=== PATIENT | female | born 1990 | race Caucasian/White ===

== ENCOUNTER 2017-01-30 11:00 | Outpatient (CLI) | payer OTHER ==
[~2017-01-30] VITALS: Ht 157.5 cm; Wt 81.8 kg
--- NOTE | 2017-01-30 11:15 | TRIAGE ---
OB Triage Datetime Report Generated by CPN: 01/30/2017 11:15 Datetime: 01/30/2017 10:50 Time of Arrival: 01/30/2017 10:50 Arrived By: Ambulatory Arrived From: Dr. Baer Chief Complaint: PT CAME IN FROM CLINIC FOR NST AND BPP FOR ARRYTHMIA Movement: Present Contractions: Denies/Absent Rupture of Membranes: Denies Vaginal Discharge: Denies Recent Sexual Intercouse: Denies Additional Patient Complaints: NONE Time Provider Notified: 01/30/2017 11:11 Provider Notified: MAURIZIO LINDQUIST Initial Plan: NST AND BPP
[2017-01-30] MEDS ORDERED: LACTATED RINGER'S 1,000 ML IV SCH (11:29)
[2017-01-30 11:34] VITALS: BP 122/74; PULSE 106; RESP 19
[2017-01-30 11:35] VITALS: Ht 157.5 cm; Wt 81.8 kg
[2017-01-30] MEDS ORDERED: PREN1TAB79 PO (11:36)
--- NOTE | 2017-01-30 13:31 | RADRPT ---
AMENDMENT: 01/30/2017 4:16:52 PM Graham Hammond M.d There is no evidence of hydrops in the limited images of the fetus. PROCEDURE: US OB. CLINICAL INDICATION: Size and dates , arrhythmia TECHNIQUE: Multiple sonographic images of the pelvis and gravid uterus were obtained. The images were reviewed on a PACS workstation. COMPARISON: No prior studies are available for comparison. FINDINGS: There is a single viable intrauterine gestation. Cardiac activity is present with 137 beats per min guillermina. There is a vertex presentation. The placenta is anterior. There is no evidence for an abruption or placenta previa. Measurements were made in order to determine age. The results are as follows: BPD =8.1 cm HC =29.0 cm AC =32.2 cm FL =7.0 cm Estimated gestational age of approximately 34 weeks and 1 day based on ultrasound measurements. Clinical age: 34 weeks and 1 day. The estimated date of delivery is 03/12/17, based on ultrasound measurements. The EFW = 2607 g, 74%, based on LMP age. RPTAT: AA IMPRESSION: Single viable intrauterine gestation of approximately 34 weeks and 1 day based on ultrasound measur ements. .Graham Hammond MD, Date Time Electronically viewed and signed by .Graham Hammond MD, MD on 01/30/2017 16:16 .S/
--- NOTE | 2017-01-30 13:49 | RADRPT ---
PROCEDURE: US OB biophysical profile. CLINICAL INDICATION: decreased movements TECHNIQUE: Multiple sonographic images of the pelvis were obtained. The images were reviewed on a PACS workstation. COMPARISON: Same day FINDINGS: There is a single viable intrauterine gestation. Cardiac activity is present with 137 beats per lorenzo te. There is a vertex presentation. The placenta is anterior. There is no evidence for an abruption or placenta previa. There is a normal amount of amniotic fluid with an FRANTZ = 8.3 cm. Biophysical profile: movement 2/2 tone 2/2. breathing 2/2 FRANTZ 2/2 Total 10/16 RPTAT: AA . IMPRESSION: Normal biophysical profile. . .Graham Hammond MD, MD Date Time Electronically viewed and signed by .Graham Hammond MD, on 01/30/2017 13:48 .S/
--- NOTE | 2017-01-30 13:51 | RADRPT ---
PROCEDURE: Limited Doppler obstetric ultrasound CLINICAL INDICATION: distress TECHNIQUE: Multiple transverse and longitudinal grayscale images of the pelvis were obtained trans abdominally. Doppler interrogation of the cord was obtained. COMPARISON: same day FINDINGS: There is a single viable intrauterine gestation. Cardiac activity is present with 137 beats per lorenzo te. There is a vertex presentation. The placenta is anterior. There is no evidence for an abruption or placenta previa. The cord systolic to diastolic ratio ranges from 1.8 to 2.3. This is within normal limits for a 34 weeks gestation. RPTAT: AA IMPRESSION: Normal systolic to diastolic ratio of the cord. .Graham Hammond MD, MD Date Time Electronically viewed and signed by .Graham Hammond MD, on 01/30/2017 13:50 .S/
[2017-01-30] MEDS ORDERED: BETAMET NA PHOS/AC(6 MG/ML) 5ML INJ IM ONE (16:30)
--- NOTE | 2017-01-30 16:34 | PN ---
Triage Information Date/Time Jan 30, 2017 at 11:11 Reason for visit: Was sent from clinic due to arrhythmia noted during Doppler examination of heart tone Weeks of Gestation 26-year-old with IUP at 34 weeks and 1 day was sent from clinic after noted to have arrhythmia during Doppler examination in the office. Patient had no complications during current . She denies any complaint. Denies any leaking of fluid, vaginal bleeding or decreased movement. /Para 3 para 1 Diabetes: none Hypertention: none Additional information During auscultation in the triage did not see clear arrhythmia , however patient was admitted for prolonged observation and maternal medicine consultation Abdomen: Soft, gravid, fundal height consistent with gestational age No abdominal or uterine tenderness noted Objective Vital Signs Date Time Temp Pulse Resp B/P Pulse Ox O2 Delivery O2 Flow Rate FiO2 01/30/17 11:34 98.6 106 19 122/74 99 Room Air Heart Rate: 130's Heart Rate Comments During auscultation in triage, I did not note clear arrhythmia however patient was admitted for prolonged observation and MFM consultation Exam General appearance: Alert and oriented 4. Patient does not appear to be in any acute distress Fundal height consistent with gestational age. No abdominal or uterine tenderness noted No contraction on the monitor noted\ AMENDMENT: 01/30/2017 4:16:52 PM Graham Hammond M.d There is no evidence of hydrops in the limited images of the fetus. PROCEDURE: US OB. CLINICAL INDICATION: Size and dates , arrhythmia TECHNIQUE: Multiple sonographic images of the pelvis and gravid uterus were obtained. The images were reviewed on a PACS workstation. COMPARISON: No prior studies are available for comparison. FINDINGS: There is a single viable intrauterine gestation. Cardiac activity is present with 137 beats per minute. There is a vertex presentation. The placenta is anterior. There is no evidence for an abruption or placenta previa. Measurements were made in order to determine age. The results are as follows: BPD = 8.1 cm HC = 29.0 cm AC = 32.2 cm FL = 7.0 cm Estimated gestational age of approximately 34 weeks and 1 day based on ultrasound measurements. Clinical age: 34 weeks and 1 day. The estimated date of delivery is 03/12/17, based on ultrasound measurements. The EFW = 2607 g, 74%, based on LMP age. RPTAT: AA IMPRESSION: Single viable intrauterine gestation of approximately 34 weeks and 1 day based on ultrasound measurements. PROCEDURE: US OB biophysical profile. CLINICAL INDICATION: decreased movements TECHNIQUE: Multiple sonographic images of the pelvis were obtained. The images were reviewed on a PACS workstation. COMPARISON: Same day FINDINGS: There is a single viable intrauterine gestation. Cardiac activity is present with 137 beats per minute. There is a vertex presentation. The placenta is anterior. There is no evidence for an abruption or placenta previa. There is a normal amount of amniotic fluid with an FRANTZ = 8.3 cm. Biophysical profile: movement 2/2 tone 2/2. breathing 2/2 FRANTZ 2/2 Total 10/16 RPTAT: AA . IMPRESSION: Normal biophysical profile. PROCEDURE: Limited Doppler obstetric ultrasound CLINICAL INDICATION: distress TECHNIQUE: Multiple transverse and longitudinal grayscale images of the pelvis were obtained transabdominally. Doppler interrogation of the cord was obtained. COMPARISON: same day FINDINGS: There is a single viable intrauterine gestation. Cardiac activity is present with 137 beats per minute. There is a vertex presentation. The placenta is anterior. There is no evidence for an abruption or placenta previa. The cord systolic to diastolic ratio ranges from 1.8 to 2.3. This is within normal limits for a 34 weeks gestation. RPTAT: AA IMPRESSION: Normal systolic to diastolic ratio of the cord. Results/Medications Medications Current Medications Betamethasone Acet/Betameth SodPhos (Celestone Soluspan) 12 mg ONCE ONCE IM ; Start 01/30/17 at 16:30; Stop 01/30/17 at 16:31 Assessment/Plan Suspected arrhythmia, Patient will be admitted for observation and prolonged monitoring Consider maternal medicine consultation Doppler of the umbilical artery normal as well as growth ultrasound shows gestational age consistent with dates. Expectant management SHEELA STEVEN MD Jan 30, 2017 16:34
[2017-01-31] MEDS ORDERED: FERROUS SULFATE (EC) 325 MG TAB PO SCH (09:00)
[2017-01-31] MEDS ORDERED: PRENATAL VITAMIN PO SCH (09:00)
== END 2017-01-30 17:30 | disposition home or self-care (01) ==
LOC: EDBD 11:00 → L-D 11:00 → OBT 11:00 → L-D 11:11 → MERGE 11:11 → UNDOADMIN 11:11 → OBT 11:35 → OBG 15:20 → L-D 15:20
PROVIDERS: ATTEND Obstetrics & Gynecology
DX: O76 Abnormality in fetal heart rate and rhythm complicating labor and delivery (principal); Z3A.34 34 weeks gestation of pregnancy
CPT/HCPCS: 76815; 76818; 76820; J0702; J7120; Z7500; G0463

== ENCOUNTER 2017-01-31 16:36 | Outpatient (CLI) | payer OTHER ==
[~2017-01-31] VITALS: Ht 157.5 cm; Wt 80.3 kg
[~2017-01-31 16:36] MED LIST: PREN1TAB79 PO
[2017-01-31 16:58] VITALS: BP 133/72; PULSE 123; RESP 18
[2017-01-31 17:13] VITALS: Ht 157.5 cm; Wt 80.3 kg
--- NOTE | 2017-01-31 17:42 | RADRPT ---
PROCEDURE: US biophysical profile. CLINICAL INDICATION: CONTRACTIONS, labor TECHNIQUE: Multiple sonographic images of the pelvis were obtained. The images were reviewed on a PACS workstation. COMPARISON: No prior studies are available for comparison. FINDINGS: There is a single viable intrauterine gestation in vertex presentation. Results of the biophysical profile are as follows breathing movement = 2/2 Gross body movement = 2/2 tone = 2/2 Quantitative amniotic fluid volume = 2/2. This yields a biophysical profile score of 8/8. The amniotic fluid index measures 7.5 cm. There is a n anterior grade II placenta. heart rate measures 144 beats per minute. IMPRESSION: Single viable intrauterine gestation, with biophysical profile of 8/8. RPTAT: HBST .Francis Rivera MD, Date Time Electronically viewed and signed by .Francis Rivera MD, on 01/31/2017 17:42 .T/
[2017-01-31 17:49] LABS: ADD UMIC YES; UR ASCORBIC ACID NEGATIVE (NEGATIVE); UR BACTERIA FEW /HPF (NONE SEEN); UR BILIRUBIN (Dip) NEGATIVE (NEGATIVE); UR BLOOD (Dip) NEGATIVE (NEGATIVE); UR CLARITY SLIGHTLY CLOUDY (CLEAR); UR COLOR AMBER (YELLOW); UR GLUCOSE (Dip) NEGATIVE (NEGATIVE); UR KETONES (Dip) NEGATIVE (NEGATIVE); UR LEUKOCYTE ESTERASE (Dip) NEGATIVE Leu/ul (NEGATIVE); UR MUCUS MANY /HPF (NONE SEEN); UR NITRITE (Dip) NEGATIVE (NEGATIVE); UR RBC 3 /HPF (0-5); UR SQUAMOUS EPITHELIAL CELL FEW /HPF (FEW); UR TOTAL PROTEIN (Dip) 1+ mg/dl (NEGATIVE); UR UROBILINOGEN (Dip) NEGATIVE (NEGATIVE)
[2017-01-31] MEDS ORDERED: BETAMET NA PHOS/AC(6 MG/ML) 5ML INJ IM ONE (18:00)
--- NOTE | 2017-01-31 18:03 | RADRPT ---
PROCEDURE: Obstetrical ultrasound greater than 14 weeks CLINICAL INDICATION: labor. Estimated weight TECHNIQUE: Real time sonographic imaging of the gravid uterus is performed transabdominally and mu ltiple static godinez scale and Doppler images are submitted for review as are measurements. The image s are reviewed on the PACS. COMPARISON: Biophysical profile 01/31/2017 FINDINGS: The cervical os is closed with a normal cervical length of 3.42 cm. There is a single living intrauterine gestation in cephalic presentation. The heart beat is estimated at 148 bpm. The measurements are as follows: BPD:7.96 cm HC:29.43 cm AC:30.71 cm FL:6.59 cm Estimated gestational age is 33 weeks 2 days. The estimated date of delivery is 03/19/2017. The estimated weight is 2315 grams. Placenta is anterior and gradeII. There is no evidence of placenta previa or abruption. RPTAT:HJJR IMPRESSION: 1. Single viable intrauterine gestation in cephalic presentation estimated at 33 weeks 2 days with t he estimated date of delivery 03/19/2017. 2. Estimated weight of 2315 g is approximately the 34th percentile. Physician Meghan Date Time Electronically viewed and signed by Physician Meghan on 01/31/2017 18:02 /
--- NOTE | 2017-01-31 18:25 | CONS ---
Date/Time of Note Date/Time of Note DATE: 01/31/17 TIME: 18:18 Consultation Date/Type/Reason Admit Date/Time January 31, 2070 OB triage consult This patient is a 26 years old, 3 para 1 1 with EDC of 2017 which makes her 34 weeks and 2 days . She is being followed for cardiac arrhythmia during this . she did not have any other complications 'she is here for further monitoring Initial Consult Date Laboratory Tests Test 01/31/17 16:47 Urine Color PATRICK Urine Clarity SLIGHTLY CLOUDY Urine pH 5.0 Urine Specific [place] 1.030 Urine Ketones NEGATIVEmg/dL Urine Nitrite NEGATIVEmg/dL Urine Bilirubin NEGATIVEmg/dL Urine Urobilinogen NEGATIVEmg/dL Urine Leukocyte Esterase NEGATIVELeu/ul Urine Microscopic RBC 3/HPF Urine Microscopic WBC 4/HPF Urine Squamous Epithelial Cells FEW/HPF Urine Bacteria FEW/HPF Urine Mucus MANY/HPF Urine Hemoglobin NEGATIVEmg/dL Urine Glucose NEGATIVEmg/dL Urine Total Protein 1+mg/dl Fibronectin NEGATIVE Current Medications Medications (Trade) Dose Ordered Sig/Idania Route PRN Reason Start Time Stop Time Status Last Admin Dose Admin Betamethasone Acet/Betameth SodPhos (Celestone Soluspan) 12 mg ONCE ONCE IM 01/31/17 18:00 01/31/17 18:01 DC 01/31/17 17:52 12 MG Reason for Consultation On examination today she is fairly comfortable her vital signs are basically close to normal with blood pressure of 133/72 pulse rate of 123 respiration 18. Her abdomen was soft with no contractions heart tracing appeared to be normal with good variability occasional acceleration no decelerations. 24 HR Interval Summary Free Text/Dictation On ultrasound study today : Report is a single viable intrauterine gestation in vertex presentation her biophysical profile was reported 10/16 amniotic fluid index was 7.5 cm the placenta was reported as grade 2 and heart rate was 144 bpm. Disposition; With these finding patient was discharged home. she will have further monitoring in 3 days. Exam/Review of Systems Vital Signs Vitals Vital Signs Date Time Temp Pulse Resp B/P Pulse Ox O2 Delivery O2 Flow Rate FiO2 01/31/17 16:58 98.0 123 18 133/72 99 Room Air Results Results 24 hrs Laboratory Tests Test 01/31/17 16:47 Urine Color PATRICK Urine Clarity SLIGHTLY CLOUDY A Urine pH 5.0 Urine Specific [place] 1.030 Urine Ketones NEGATIVE Urine Nitrite NEGATIVE Urine Bilirubin NEGATIVE Urine Urobilinogen NEGATIVE Urine Leukocyte Esterase NEGATIVE Urine Microscopic RBC 3 Urine Microscopic WBC 4 Urine Squamous Epithelial Cells FEW Urine Bacteria FEW A Urine Mucus MANY A Urine Hemoglobin NEGATIVE Urine Glucose NEGATIVE Urine Total Protein 1+ H Fibronectin NEGATIVE DARIEN LOPEZ MD Jan 31, 2017 18:25
--- NOTE | 2017-01-31 18:57 | TRIAGE ---
OB Triage Datetime Report Generated by CPN: 01/31/2017 18:57 Datetime: 01/31/2017 17:52 Pain Assessment Pain Scale: 0 Pain Presence: None/Denies Pain Type: N/A Pain Goal: 0 Pain Assessment Comments: PT DENIES PAIN AND PRESSURE AT THIS TIME Datetime: 01/31/2017 17:38 Assessment Type: Triage Maternal Assessment Level of Consciousness: Fully Conscious DTR's/Clonus: DTRs 2+; No Clonus Headache: Denies Blurred Vision: No Respiratory Effort: Unlabored; Regular Rhythm; Equal Expansion Breath Sounds, Left: Clear and Equal Breath Sounds, Right: Clear and Equal Nausea/Vomiting: Denies RUQ Epigastric Pain: Denies Lower Extremities Edema: Bilateral Lower Extremities Degree: None Upper Extremities Edema: None Degree: None Facial Edema: None Fall Risk Assessment History of Falling: (0) No Secondary Diagnosis: (0) No Ambulatory Aid: (0) Bedrest/Nurse Assist IV Therapy: (0) No Gait: (0) Normal/Bedrest/Immobile Mental Status: (0) Oriented to Own Ability Fall Score: 0 Fall Risk Score Definition: No Risk: No action required Datetime: 01/31/2017 17:37 Labor Evaluation Frequency: 0 Monitor Mode: External Duration (sec)2399: 0 Resting Tone [place]: Relaxed Heart Rate FHR Baseline Rate: 145 Monitor Mode: External US Variability: Moderate 6-25 bpm Accelerations: 15X15 Decelerations: None Category: Category I Comments: NST REACTIVE FOR GESTATIONAL AGE Pain Assessment Pain Scale: 5 Pain Presence: Intermittent Pain Type: Contraction; Pressure Pain Location: Abdomen; Back Pain Goal: 2 Pain Relief Measures: Comfort Measures Pain Assessment Comments: PT REPORTS LESS PAIN THAN YDAY Datetime: 01/31/2017 17:21 Pain Assessment Pain Scale: 5 Pain Presence: Intermittent Pain Type: Contraction Pain Location: Abdomen; Back; Perineum Pain Goal: 2 Pain Relief Measures: Comfort Measures Datetime: 01/31/2017 17:16 EGA: 34.2 Datetime: 01/31/2017 17:00 Stage of : OB Triage Assessment Type: Triage Maternal Assessment Level of Consciousness: Fully Conscious DTR's/Clonus: DTRs 2+; No Clonus Headache: Denies Blurred Vision: No Respiratory Effort: Unlabored; Regular Rhythm; Equal Expansion Breath Sounds, Left: Clear and Equal Breath Sounds, Right: Clear and Equal Nausea/Vomiting: Denies RUQ Epigastric Pain: Denies Lower Extremities Edema: None Degree: None Upper Extremities Edema: None Degree: None Facial Edema: None Temperature Route: Axillary Fall Risk Assessment History of Falling: (0) No Secondary Diagnosis: (0) No Ambulatory Aid: (0) Bedrest/Nurse Assist IV Therapy: (0) No Gait: (0) Normal/Bedrest/Immobile Mental Status: (0) Oriented to Own Ability Fall Score: 0 Fall Risk Score Definition: No Risk: No action required Datetime: 01/31/2017 16:52 Time of Arrival: 01/31/2017 16:28 Arrived By: Ambulatory Arrived From: Home Chief Complaint: 2ND DOSE OF BETA Movement: Present Contractions: Irregular Rupture of Membranes: Denies Vaginal Bleeding: None Vaginal Discharge: Denies Recent Sexual Intercouse: Denies Abdominal Trauma: Not Applicable Additional Patient Complaints: PT REPORTS "PRESSURE LIKE THE BABY WANTS TO COME " 5/10 VAGINAL TN ESSURE Time Provider Notified: 01/31/2017 17:22 Provider Notified: DR. LOPEZ Initial Plan: SVE Datetime: 01/31/2017 16:46 Vaginal Exam Dilatation (cms): 2.0 Effacement (%): 50 Station: -3 Exam By: SILVA SANTIAGO Cervix, Consistency: Moderate
== END 2017-01-31 18:30 | disposition home or self-care (01) ==
LOC: OBT 16:36 → L-D 16:37 → OBT 18:30
PROVIDERS: ATTEND Obstetrics & Gynecology
DX: O99.413 Diseases of the circulatory system complicating pregnancy, third trimester (principal); I49.9 Cardiac arrhythmia, unspecified; Z3A.34 34 weeks gestation of pregnancy
CPT/HCPCS: 76815; 76817; 76818; 81001; 82731; J0702; G0463

== ENCOUNTER 2017-02-01 13:34 | Outpatient (CLI) | payer OTHER ==
[~2017-02-01] VITALS: Ht 157.5 cm; Wt 80.4 kg
[2017-02-01 14:27] VITALS: BP 98/64; PULSE 100; RESP 18
[2017-02-01 15:07] VITALS: Ht 157.5 cm; Wt 80.4 kg
--- NOTE | 2017-02-01 15:14 | RADRPT ---
PROCEDURE: US OB biophysical profile. CLINICAL INDICATION: decreased movements TECHNIQUE: Multiple sonographic images of the pelvis were obtained. The images were reviewed on a PACS workstation. COMPARISON: US PELVIS 01/31/2017 FINDINGS: There is a single viable intrauterine gestation. Cardiac activity is present with 142 beats per min guillermina. There is a vertex presentation. The placenta is anterior. There is no evidence of placental abruption. There is a normal amount of amniotic fluid with an FRANTZ = 9.8 cm. Biophysical profile: movement 2/2 tone 2/2. breathing 2/2 FRANTZ 2/2 Total 10/16 RPTAT: AA . IMPRESSION: Normal biophysical profile. . .Graham Hammond MD, MD Date Time Electronically viewed and signed by .Graham Hammond MD, on 02/01/2017 15:13 .S/
[2017-02-01] MEDS ORDERED: TERBUTALINE 1 ML ONE (16:52)
[2017-02-01] MEDS ORDERED: LACTATED RINGER'S 1,000 ML IV SCH (17:00)
[2017-02-01] MEDS ORDERED: TERBUTALINE 1 MG/ML INJ SC ONE (17:00)
[2017-02-01 18:05] LABS: BASOPHILS % 0.1 % (0.0-2.0); EOSINOPHILS % 0.1 % (0.0-7.0); HEMOGLOBIN 11.2 g/dl (12.0-16.0); LYMPHOCYTES # 1.9 10^3/ul (0.8-2.9); LYMPHOCYTES % 17.6 % (15.0-51.0); MEAN CORPUSCULAR HEMOGLOBIN 29.2 pg (29.0-33.0); MEAN CORPUSCULAR HGB CONC 32.9 g/dl (32.0-37.0); MEAN CORPUSCULAR VOLUME 88.8 fl (82.0-101.0); MEAN PLATELET VOLUME 11.1 fl (7.4-10.4); MONOCYTE # 0.9 10^3/ul (0.3-0.9); NEUTROPHIL # 7.7 10^3/ul (1.6-7.5); NEUTROPHILS % 72.2 % (39.0-77.0); PLATELET COUNT 269 10^3/UL (140-415); RED BLOOD COUNT 3.83 10^6/ul (4.20-5.40); WHITE BLOOD COUNT 10.7 10^3/ul (4.8-10.8)
[2017-02-01 18:10] LABS: ADD UMIC YES; UR ASCORBIC ACID NEGATIVE (NEGATIVE); UR BILIRUBIN (Dip) NEGATIVE (NEGATIVE); UR BLOOD (Dip) NEGATIVE (NEGATIVE); UR CLARITY CLEAR (CLEAR); UR COLOR YELLOW (YELLOW); UR GLUCOSE (Dip) 2+ mg/dL (NEGATIVE); UR KETONES (Dip) NEGATIVE (NEGATIVE); UR LEUKOCYTE ESTERASE (Dip) NEGATIVE Leu/ul (NEGATIVE); UR MUCUS FEW /HPF (NONE SEEN); UR NITRITE (Dip) NEGATIVE (NEGATIVE); UR RBC 1 /HPF (0-5); UR SPECIFIC GRAVITY (Dip) 1.028 (1.003-1.030); UR SQUAMOUS EPITHELIAL CELL FEW /HPF (FEW); UR TOTAL PROTEIN (Dip) 1+ mg/dl (NEGATIVE); UR UROBILINOGEN (Dip) NEGATIVE (NEGATIVE)
--- NOTE | 2017-02-01 18:27 | TRIAGE ---
OB Triage Datetime Report Generated by CPN: 02/01/2017 18:27 Datetime: 02/01/2017 16:06 Frequency: 0 Monitor Mode: External Duration (sec)2399: 0 Resting Tone [place]: Relaxed FHR Baseline Rate: 135 Monitor Mode: External US Variability: Moderate 6-25 bpm Accelerations: 15X15 Decelerations: None Category: Category I Datetime: 02/01/2017 14:30 Time of Arrival: 02/01/2017 13:30 EGA: 34.3 Arrived By: Ambulatory Arrived From: Home Chief Complaint: DFM Movement: Decreased Contractions: Denies/Absent Rupture of Membranes: Denies Vaginal Bleeding: None Vaginal Discharge: Denies Recent Sexual Intercouse: Denies Abdominal Trauma: Not Applicable Patient Complaints: Back Pain Additional Patient Complaints: Time Provider Notified: 02/01/2017 14:00 Provider Notified: DR. LINDQUIST Initial Plan: NST AND CALL MD Datetime: 02/01/2017 14:00 Stage of : OB Triage Assessment Type: Triage Level of Consciousness: Fully Conscious DTR's/Clonus: DTRs 2+; No Clonus Headache: Denies Blurred Vision: No Respiratory Effort: Unlabored; Regular Rhythm; Equal Expansion Breath Sounds, Left: Clear and Equal Breath Sounds, Right: Clear and Equal Nausea/Vomiting: Denies RUQ Epigastric Pain: Denies Lower Extremities Edema: None Degree: None Upper Extremities Edema: None Degree: None Facial Edema: None Temperature Route: Axillary History of Falling: (0) No Secondary Diagnosis: (0) No Ambulatory Aid: (0) Bedrest/Nurse Assist IV Therapy: (0) No Gait: (0) Normal/Bedrest/Immobile Mental Status: (0) Oriented to Own Ability Fall Score: 0 Fall Risk Score Definition: No Risk: No action required Datetime: 01/31/2017 17:38 Fall Score: 0 Fall Risk Score Definition: No Risk: No action required Datetime: 01/31/2017 17:16 EGA: 34.2 Datetime: 01/31/2017 17:00 Fall Score: 0 Fall Risk Score Definition: No Risk: No action required
--- NOTE | 2017-02-01 18:28 | PN ---
Triage Information Date/Time February 01, 2017 1800 p.m. Reason for visit: DFM (Complain of decreased movement) Weeks of Gestation 84+ weeks /Para Data 3 para 1 Diabetes: none Hypertention: none Additional information Patient with known irregular heart tones was discharged home 2 days prior to admission Patient noticed to have irregular and infrequent uterine contractions which subsided after IV hydration and administration of 1 dose of subcutaneous terbutaline Objective Vital Signs Date Time Temp Pulse Resp B/P Pulse Ox O2 Delivery O2 Flow Rate FiO2 02/01/17 14:27 98.0 100 18 98/64 99 Room Air Heart Rate: 140's Heart Rate Comments heart tones are reactive Exam Cervix is reported to be long and closed Results/Medications Result Diagram: 02/01/17 1700 Results 24 hrs Laboratory Tests Test 02/01/17 17:00 White Blood Count 10.7 Red Blood Count 3.83 L Hemoglobin 11.2 L Hematocrit 34.0 L Mean Corpuscular Volume 88.8 Mean Corpuscular Hemoglobin 29.2 Mean Corpuscular Hemoglobin Concent 32.9 Red Cell Distribution Width 14.0 Platelet Count 269 Mean Platelet Volume 11.1 H Neutrophils % 72.2 Lymphocytes % 17.6 Monocytes % 8.0 Eosinophils % 0.1 Basophils % 0.1 Nucleated Red Blood Cells % 0.0 Neutrophils # 7.7 H Lymphocytes # 1.9 Monocytes # 0.9 Eosinophils # 0.0 Basophils # 0.0 Nucleated Red Blood Cells # 0.0 Urine Color YELLOW Urine Clarity CLEAR Urine pH 6.0 Urine Specific [place] 1.028 Urine Ketones NEGATIVE Urine Nitrite NEGATIVE Urine Bilirubin NEGATIVE Urine Urobilinogen NEGATIVE Urine Leukocyte Esterase NEGATIVE Urine Microscopic RBC 1 Urine Microscopic WBC 1 Urine Squamous Epithelial Cells FEW Urine Mucus FEW A Urine Hemoglobin NEGATIVE Urine Glucose 2+ H Urine Total Protein 1+ H Medications Current Medications Lactated Ringer's (Lr) 1,000 ml @ 125 mls/hr Q8H IV Last administered on 02/01t 17:05; Admin Dose 125 MLS/HR; Start 02/01/17 at 17:00 Imaging Results Biophysical profile: movement 2/2 tone 2/2. breathing 2/2 FRANTZ 2/2 Total 10/16 Disposition: Discharge Assessment/Plan Normal biophysical profile and reactive NST We will repeat antepartum testing on Saturday Referred patient to antepartum testing unit for biweekly nonstress tests and biophysical profiles FREEMAN GARCIA MD Feb 01, 2017 18:28
[2017-02-01 19:07] LABS: ALBUMIN/GLOBULIN RATIO 0.93; CALCIUM 8.3 mg/dl (8.4-10.2); CREATININE 0.55 mg/dl (0.44-1.00); POTASSIUM 3.6 mmol/L (3.5-5.1); TOTAL PROTEIN 6.2 g/dl (6.1-8.1)
== END 2017-02-01 18:45 | disposition home or self-care (01) ==
LOC: OBT 13:34 → L-D 13:35 → OBT 18:45
PROVIDERS: ATTEND Obstetrics & Gynecology
DX: O36.8130 Decreased fetal movements, third trimester, not applicable or unspecified (principal); Z3A.34 34 weeks gestation of pregnancy
CPT/HCPCS: 76818; 80053; 81001; 85025; J3105; J7120

== ENCOUNTER 2017-02-04 11:12 | Outpatient (CLI) | payer OTHER ==
[~2017-02-04] VITALS: Ht 157.5 cm; Wt 81.0 kg
[2017-02-04 11:20] VITALS: Ht 157.5 cm; Wt 81.0 kg
[2017-02-04 11:21] VITALS: BP 114/63; PULSE 100; RESP 18
--- NOTE | 2017-02-04 11:59 | RADRPT ---
PROCEDURE: US OB biophysical profile. CLINICAL INDICATION: decreased movements, arrhythmia TECHNIQUE: Multiple sonographic images of the pelvis were obtained. The images were reviewed on a PACS workstation. COMPARISON: US PELVIS 02/01/2017 FINDINGS: There is a single viable intrauterine gestation. Cardiac activity is present with 144 beats per min [place]. There is a vertex presentation. The placenta is anterior. There is no evidence of placental abruption. There is a normal amount of amniotic fluid with an FRANTZ = 11.4 cm. Biophysical profile: movement 2/2 tone 2/2. breathing 2/2 FRANTZ 2/2 Total 10/16 RPTAT: AA . IMPRESSION: Normal biophysical profile. . .Graham Hammond MD, MD Date Time Electronically viewed and signed by .Graham Hammond MD, MD on 02/04/2017 11:58 .S/
--- NOTE | 2017-02-04 12:46 | PN ---
Triage Information Date/Time Reason for visit: Weeks of Gestation Patient is a 26-year-old 3 para 1 at 34 weeks and 6 days of gestation who presents for follow-up on arrhythmia She reports positive movement She has no complaints of uterine contractions or vaginal bleeding or leaking fluid /Para 3 para 1 Diabetes: none Hypertention: none Objective Vital Signs Date Time Temp Pulse Resp B/P Pulse Ox O2 Delivery O2 Flow Rate FiO2 02/04/17 11:21 97.8 100 18 114/63 Heart Rate: 140's Heart Rate Comments Category 1 Contractions: None Results/Medications Imaging Results PROCEDURE: US OB biophysical profile. CLINICAL INDICATION: decreased movements, arrhythmia TECHNIQUE: Multiple sonographic images of the pelvis were obtained. The images were reviewed on a PACS workstation. COMPARISON: US PELVIS 02/01/2017 FINDINGS: There is a single viable intrauterine gestation. Cardiac activity is present with 144 beats per minute. There is a vertex presentation. The placenta is anterior. There is no evidence of placental abruption. There is a normal amount of amniotic fluid with an FRANTZ = 11.4 cm. Biophysical profile: movement 2/2 tone 2/2. breathing 2/2 FRANTZ 2/2 Total 10/16 RPTAT: AA . IMPRESSION: Normal biophysical profile. . .Graham Hammond MD, MD Date Time Electronically viewed and signed by .Graham Hammond MD, on 02/04/2017 11: 58 .S/ CC: FREEMAN GARCIA MD Disposition: Discharge Assessment/Plan kick counts were reviewed with the patient Patient has a follow-up appointment with her own [facility] on February 06 Patient was instructed to return here on February 07 for repeat NST and biophysical profile Patient will be referred to perinatologist on February 07 for further evaluation of arrhythmia and echocardiogram CRISTIAN JARAMILLO MD Feb 04, 2017 12:46
--- NOTE | 2017-02-04 12:50 | TRIAGE ---
OB Triage Datetime Report Generated by CPN: 02/04/2017 12:49 Datetime: 02/04/2017 12:35 Stage of : OB Triage Datetime: 02/04/2017 12:30 Labor Evaluation Frequency: 0 Monitor Mode: External Pattern: Normal: <= 5 Contractions in 10 Minutes Resting Tone [place]: Relaxed Heart Rate FHR Baseline Rate: 145 Monitor Mode: External US Variability: Moderate 6-25 bpm Accelerations: 10X10 Decelerations: None Category: Category I Pain Assessment Pain Scale: 0 Pain Presence: None/Denies Pain Type: N/A Pain Goal: 3 Pain Relief Measures: Comfort Measures Datetime: 02/04/2017 12:22 Stage of : OB Triage Datetime: 02/04/2017 11:23 Stage of : OB Triage Labor Evaluation Frequency: none Pattern: Normal: <= 5 Contractions in 10 Minutes Heart Rate FHR Baseline Rate: 150 Monitor Mode: External US FHR Baseline Changes: No Baseline Change Variability: Moderate 6-25 bpm Accelerations: 15X15 Decelerations: None Category: Category I Datetime: 02/04/2017 11:16 Stage of : OB Triage Maternal Assessment Level of Consciousness: Fully Conscious DTR's/Clonus: DTRs 2+; No Clonus Headache: Denies Blurred Vision: No Respiratory Effort: Unlabored; Regular Rhythm; Equal Expansion Nausea/Vomiting: Denies RUQ Epigastric Pain: Denies Lower Extremities Edema: None Degree: None Upper Extremities Edema: None Degree: None Facial Edema: None Temperature Route: Axillary Fall Risk Assessment History of Falling: (0) No Secondary Diagnosis: (0) No Ambulatory Aid: (0) Bedrest/Nurse Assist IV Therapy: (0) No Gait: (0) Normal/Bedrest/Immobile Mental Status: (0) Oriented to Own Ability Fall Score: 0 Fall Risk Score Definition: No Risk: No action required Monitor Mode: External (Annotations: denies feeling contraction) Heart Rate FHR Baseline Rate: 150 Monitor Mode: External US Pain Assessment Pain Scale: 0 Datetime: 02/04/2017 11:15 Time of Arrival: 02/04/2017 11:15 EGA: 34.6 Arrived By: Ambulatory Arrived From: Home Chief Complaint: follow up for arythmia Movement: Present Contractions: Denies/Absent Rupture of Membranes: Denies Vaginal Bleeding: None Vaginal Discharge: Denies Recent Sexual Intercouse: Denies Abdominal Trauma: Not Applicable Patient Complaints: Other Time Provider Notified: 02/04/2017 12:22 Provider Notified: nelson Initial Plan: efm/ bpp Datetime: 02/01/2017 18:27 Pain Assessment Pain Scale: 2 Pain Goal: 2 Pain Assessment Comments: PT REPORTS FEELING DECREASED PAIN Datetime: 02/01/2017 18:04 Labor Evaluation Frequency: 0 Monitor Mode: External Duration (sec)2399: 0 Resting Tone [place]: Relaxed Heart Rate FHR Baseline Rate: 135 Monitor Mode: External US Variability: Moderate 6-25 bpm Accelerations: 15X15 Decelerations: None Category: Category I Comments: NST REACTIVE FOR GESTATIONAL AGE Datetime: 02/01/2017 17:14 Labor Evaluation Frequency: 0 Monitor Mode: External Duration (sec)2399: 0 Resting Tone [place]: Relaxed Heart Rate FHR Baseline Rate: 135 Monitor Mode: External US Variability: Moderate 6-25 bpm Accelerations: 15X15 Decelerations: None Category: Category I Datetime: 02/01/2017 16:21 Labor Evaluation Frequency: IRREG Monitor Mode: External Quality: Mild Pattern: Normal: <= 5 Contractions in 10 Minutes Resting Tone [place]: Relaxed Heart Rate FHR Baseline Rate: 135 Variability: Moderate 6-25 bpm Accelerations: 15X15 Decelerations: None Category: Category I Comments: OCCASIONAL SUSPECTED ARRYTHMIA NOTED Datetime: 02/01/2017 15:36 Labor Evaluation Frequency: 0 Monitor Mode: External Duration (sec)2399: 0 Resting Tone [place]: Relaxed Heart Rate FHR Baseline Rate: 135 Monitor Mode: External US Variability: Moderate 6-25 bpm Accelerations: 15X15 Decelerations: None Category: Category I Datetime: 02/01/2017 14:30 EGA: 34.3 Datetime: 02/01/2017 14:21 Labor Evaluation Frequency: 0 Monitor Mode: External Duration (sec)2399: 0 Resting Tone [place]: Relaxed Heart Rate FHR Baseline Rate: 135 Variability: Moderate 6-25 bpm Accelerations: 15X15 Decelerations: None Category: Category I Datetime: 02/01/2017 14:00 Fall Score: 0 Fall Risk Score Definition: No Risk: No action required Pain Assessment Pain Scale: 3 Pain Presence: Intermittent Pain Type: Cramping Pain Location: Perineum; Abdomen Pain Goal: 2 Pain Relief Measures: Comfort Measures Datetime: 01/31/2017 17:38 Fall Score: 0 Fall Risk Score Definition: No Risk: No action required Datetime: 01/31/2017 17:16 EGA: 34.2 Datetime: 01/31/2017 17:00 Fall Score: 0 Fall Risk Score Definition: No Risk: No action required
== END 2017-02-04 12:45 | disposition home or self-care (01) ==
LOC: L-D 11:12 → OBT 11:12
PROVIDERS: ATTEND Obstetrics & Gynecology
DX: O76 Abnormality in fetal heart rate and rhythm complicating labor and delivery (principal); Z3A.34 34 weeks gestation of pregnancy
CPT/HCPCS: 76818; Z7500; G0463

== ENCOUNTER 2017-02-07 09:05 | Outpatient (CLI) | payer OTHER ==
[~2017-02-07] VITALS: Ht 157.5 cm; Wt 81.9 kg
--- NOTE | 2017-02-07 09:44 | RADRPT ---
PROCEDURE: US OB biophysical profile. CLINICAL INDICATION: Biophysical profile TECHNIQUE: Multiple sonographic images of the pelvis were obtained. The images were reviewed on a PACS workstation. COMPARISON: US PELVIS 02/04/2017 FINDINGS: There is a single live intrauterine , in cephalic presentation. A normal heart rate i s identified measuring 155 beats per minute. The amniotic fluid index is within normal limits measur ing 15.3 cm. Biophysical profile: movement 2/2 tone 2/2. breathing 2/2 FRANTZ 2/2 Total 10/16 IMPRESSION: 1. Biophysical profile score of 8/8. 2. Single live intrauterine in cephalic presentation with normal heart rate of 155 b pm. 3. Normal amniotic fluid index of 15.3 cm. RPTAT: AAPP Physician Criss Date Time Electronically viewed and signed by Physician Criss on 02/07/2017 09:44 NICOLE/
[2017-02-07 10:25] VITALS: BP 119/73; PULSE 105; RESP 19; Ht 157.5 cm; Wt 81.9 kg
--- NOTE | 2017-02-07 11:42 | TRIAGE ---
OB Triage Datetime Report Generated by CPN: 02/07/2017 11:42 Datetime: 02/07/2017 11:04 Stage of : OB Triage Maternal Assessment Level of Consciousness: Fully Conscious DTR's/Clonus: DTRs 1+ Headache: Denies Breath Sounds, Left: Clear and Equal Breath Sounds, Right: Clear and Equal Nausea/Vomiting: Denies RUQ Epigastric Pain: Denies Labor Evaluation Frequency: NONE Monitor Mode: External Resting Tone [place]: Relaxed Heart Rate FHR Baseline Rate: 135 Monitor Mode: External US Variability: Moderate 6-25 bpm Accelerations: 15X15 Decelerations: None Category: Category I Pain Assessment Pain Scale: 0 Pain Presence: None/Denies Pain Type: N/A Pain Goal: 3 Vaginal Exam Membrane Status: Intact Datetime: 02/07/2017 10:20 Maternal Assessment Level of Consciousness: Fully Conscious DTR's/Clonus: DTRs 1+ Headache: Denies Blurred Vision: No Respiratory Effort: Unlabored Breath Sounds, Left: Clear and Equal Breath Sounds, Right: Clear and Equal Nausea/Vomiting: Denies RUQ Epigastric Pain: Denies Facial Edema: None Labor Evaluation Frequency: NONE Monitor Mode: External Resting Tone [place]: Relaxed Heart Rate FHR Baseline Rate: 135 Monitor Mode: External US Variability: Moderate 6-25 bpm Accelerations: 10X10 Decelerations: None Category: Category II Pain Assessment Pain Scale: 0 Pain Presence: None/Denies Pain Type: N/A Pain Goal: 3 Vaginal Exam Membrane Status: Intact Datetime: 02/07/2017 09:41 Assessment Type: Triage Maternal Assessment Level of Consciousness: Fully Conscious DTR's/Clonus: DTRs 2+; No Clonus Headache: Denies Blurred Vision: No Respiratory Effort: Unlabored; Regular Rhythm; Equal Expansion Breath Sounds, Left: Clear and Equal Breath Sounds, Right: Clear and Equal Nausea/Vomiting: Denies RUQ Epigastric Pain: Denies Lower Extremities Edema: None Degree: None Upper Extremities Edema: None Degree: None Facial Edema: None Fall Risk Assessment History of Falling: (0) No Secondary Diagnosis: (0) No Ambulatory Aid: (0) Bedrest/Nurse Assist IV Therapy: (0) No Gait: (0) Normal/Bedrest/Immobile Mental Status: (0) Oriented to Own Ability Fall Score: 0 Fall Risk Score Definition: No Risk: No action required Datetime: 02/07/2017 09:03 Time of Arrival: 02/07/2017 09:03 EGA: 35.2 Arrived By: Ambulatory Arrived From: Office Chief Complaint: PT CAME IN FOR NST AN BPP FOR DFM Movement: Present Contractions: Denies/Absent Rupture of Membranes: Denies Vaginal Discharge: Denies Recent Sexual Intercouse: Denies Abdominal Trauma: Not Applicable Additional Patient Complaints: NONE Time Provider Notified: 02/07/2017 11:20 Provider Notified: LEXA Initial Plan: NST AND BPP Datetime: 02/04/2017 12:46 Vaginal Bleeding: None Vaginal Discharge: Denies Recent Sexual Intercouse: Denies Datetime: 02/04/2017 11:16 Fall Score: 0 Fall Risk Score Definition: No Risk: No action required Datetime: 02/04/2017 11:15 EGA: 34.6 Datetime: 02/01/2017 14:30 EGA: 34.3 Datetime: 02/01/2017 14:00 Fall Score: 0 Fall Risk Score Definition: No Risk: No action required Datetime: 01/31/2017 17:38 Fall Score: 0 Fall Risk Score Definition: No Risk: No action required Datetime: 01/31/2017 17:16 EGA: 34.2 Datetime: 01/31/2017 17:00 Fall Score: 0 Fall Risk Score Definition: No Risk: No action required
--- NOTE | 2017-02-07 12:16 | CONS ---
Date/Time of Note Date/Time of Note DATE: 02/07/17 TIME: 12:11 Consultation Date/Type/Reason Admit Date/Time February 07, 2017 OB triage consult. This patient is a 26 years old 3 para 1 1 living 1 Who came to the triage clinic complaining of low movement. On examination she is a well-developed well-nourished patient near-term. Her vital signs are basically within normal limits with a blood pressure 119/73 pulse rate of 105 respiration 19 temperature 98.4,,,. Constitutional: No chills, No diaphoresis, No disoriented, No febrile, No improved, No no complaints, No other, No poor po, No requiring IVF, No requiring O2 Eyes: No discharge, No no complaints, No other, No pain, No redness, No visual change ENT: No bleeding, No congestion, No discharge, No dysphagia, No no complaints, No other, No pain, No sore throat Respiratory: No cough, No no complaints, No other, No pain, No pleuritic pain, No shortness of breath, No sputum, No wheezing Cardiovascular: No chest pain, No edema, No lightheadedness, No no complaints, No orthopenea, No other, No palpitations, No paroxysmal nocturnal dyspnea Gastrointestinal: No blood, No constipation, No decreased appetite, No diarrhea , No flatus, No nausea, No no complaints, No other, No pain, No passing stool, No vomiting Genitourinary: other (Due to lack of any contractions the pelvic examination was not performed), No bleeding, No discharge, No dysuria, No flank pain, No hematuria, No no complaints Musculoskeletal: No back pain, No bone/joint pain, No neck pain, No no complaints, No other, No restricted range of motion, No swelling Skin: No bruising, No erythema, No laceration, No no complaints, No other, No pruritis, No rash, No skin lesions Neurologic: No confusion, No dizziness, No focal-weakness, No headache, No no complaints, No other, No seizure, No syncope Additional Comments On lab study her urinalysis but it was within normal limits her NST was reactive with fairly good variability occasional acceleration no sign of decelerations On ultrasound study report was a single viable intrauterine gestation in vertex presentation heart rate of 155 the amniotic fluid index was measured 15.3 cm. Her biophysical profile was reported 10/16. Disposition. With these findings which were discussed with the patient she was discharged home to continue doing kick count and to return to triage if he truly low movement or any evidence of labor.. . Social History Smoking Status: Never smoker Exam/Review of Systems Vital Signs Vitals Vital Signs Date Time Temp Pulse Resp B/P Pulse Ox O2 Delivery O2 Flow Rate FiO2 02/07/17 10:25 98.4 105 19 119/73 99 Room Air DARIEN LOPEZ MD Feb 07, 2017 12:16
== END 2017-02-07 11:26 | disposition home or self-care (01) ==
LOC: L-D 09:05 → OBT 09:05
PROVIDERS: ATTEND Obstetrics & Gynecology
DX: O36.8130 Decreased fetal movements, third trimester, not applicable or unspecified (principal); Z3A.35 35 weeks gestation of pregnancy
CPT/HCPCS: 76818; Z7500; G0463

== ENCOUNTER 2017-03-07 08:10 | Inpatient (IN) | END 2017-03-10 18:19 | disposition home or self-care (01) | DRG 775 ==